=== PATIENT | male | born 1970 ===

== ENCOUNTER → 2021-02-06 14:11 | Outpatient (ROUT) | payer OTHER, SELFPAY ==
[2021-02-06 14:36] LABS: COVID19 -Nasal RAPID POSITIVE (Negative)
== END ==
PROVIDERS: Visit Provider Family Medicine
DX: U07.1 COVID-19 (principal); R53.83 Other fatigue; R68.83 Chills (without fever); R05 Cough
CPT/HCPCS: 87635

== ENCOUNTER → 2021-02-14 14:33 | Outpatient (ROUT) | payer OTHER, SELFPAY ==
[2021-02-15 08:18] LABS: COVID19 - ORCAS (NP or Nasal) POSITIVE (Negative)
== END ==
PROVIDERS: Visit Provider Family Medicine
DX: U07.1 COVID-19 (principal)
CPT/HCPCS: U0003